=== PATIENT | female | born 1945 | race Caucasian/White ===

== ENCOUNTER 2016-08-25 13:01 | Outpatient (RCR) | payer MEDICARE | END 2016-09-13 09:56 | disposition home or self-care (01) | PROVIDERS: ATTEND Family Medicine | DX: M47.892 Other spondylosis, cervical region (principal) ==

== ENCOUNTER → 2017-03-05 | Outpatient (CLI) | payer MEDICARE ==
[2017-03-05 14:26] LABS: INR 1.7 (0.8-1.4)
== END ==
LOC: HH 14:17
PROVIDERS: ATTEND Orthopaedic Surgery
DX: Z79.01 Long term (current) use of anticoagulants (principal)
CPT/HCPCS: 85610

== ENCOUNTER → 2017-03-08 | Outpatient (CLI) | payer MEDICARE ==
[2017-03-08 10:44] LABS: INR 2.6 (0.8-1.4); PROTHROMBIN TIME PATIENT 27.3 SEC (12.2-14.7)
== END ==
LOC: HH 10:16
PROVIDERS: ATTEND Orthopaedic Surgery
DX: Z79.01 Long term (current) use of anticoagulants (principal)
CPT/HCPCS: 85610

== ENCOUNTER → 2017-03-15 | Outpatient (CLI) | payer MEDICARE ==
[2017-03-15 16:26] LABS: INR 2.6 (0.8-1.4); PROTHROMBIN TIME PATIENT 27.3 SEC (12.2-14.7)
== END ==
LOC: HH 10:00
PROVIDERS: ATTEND Orthopaedic Surgery
DX: Z79.01 Long term (current) use of anticoagulants (principal)
CPT/HCPCS: 85610

== ENCOUNTER 2017-04-06 14:30 | Outpatient (RCR) | payer MEDICARE | END 2017-04-07 | disposition home or self-care (01) | PROVIDERS: ATTEND Orthopaedic Surgery | DX: Z47.1 Aftercare following joint replacement surgery; Z96.652 Presence of left artificial knee joint ==

== ENCOUNTER 2017-05-09 10:00 | Outpatient (RCR) | payer MEDICARE | END 2017-05-09 10:56 | disposition home or self-care (01) | PROVIDERS: ATTEND Orthopaedic Surgery | DX: Z47.1 Aftercare following joint replacement surgery (principal); Z96.652 Presence of left artificial knee joint ==

== ENCOUNTER → 2019-07-07 | Outpatient (CLI) | payer MEDICARE ==
--- NOTE | 2019-07-07 11:40 | Diagnostic Imaging Report ---
INDICATION: Dysphagia. TECHNIQUE: Procedure was performed in conjunction with speech pathology. Videofluoroscopy was performed during swallowing of barium at multiple consistencies. 52 seconds of fluoroscopic time was utilized. FINDINGS: Patient ingested thin liquid through a spoon and straw. Patient also ingested puree, mechanical soft and cracker consistency. Oral phase is unremarkable. There is normal epiglottic tilt and laryngeal elevation. No laryngeal penetration or aspiration was observed. No significant vallecular or piriform sinus residue was seen. IMPRESSION: Unremarkable modified barium swallow. Dictated by: Dictated on workstation # [id number]
== END ==
LOC: RAD 10:22
PROVIDERS: ATTEND Internal Medicine Gastroenterology
DX: R13.19 Other dysphagia (principal)
CPT/HCPCS: 74230

== ENCOUNTER 2022-11-20 16:43 | Emergency (ER) | payer MEDICARE, MEDICAID ==
[~2022-11-20] VITALS: Ht 152 cm; Wt 63.5 kg
[2022-11-20] MEDS ORDERED: CYCLOBENZAPRINE 10 MG (FLEXERIL) TAB PO STA (17:06)
[2022-11-20] MEDS ORDERED: GABAPENTIN 600 MG (NEURONTIN) TAB PO ONE (17:15)
[2022-11-20] MEDS ORDERED: ACETAMINOPHEN 500 MG TAB (TYLENOL) PO ONE (17:15)
--- NOTE | 2022-11-20 17:24 | ED General ---
General Chief Complaint: General Problems/Pain Stated Complaint: RIGHT SIDE NECK/ARM/LEG/BACK/FOOT PAIN Nursing Triage Note: pt presents to ED with c/o pain on entire right side of body, from neck to right foot. pt has hx of arthritis and took tylenol arthritis but it didn't help the pain. Source of Information: Patient Exam Limitations: No Limitations History of Present Illness Date Seen by Provider: November 20, 2022 Time Seen by Provider: 16:47 Initial Comments 77-year-old female with past medical history of osteoarthritis coming in due to mostly right-sided neck pain and right shoulder pain. Started over a week ago, worse with movement, better with rest. She takes Tylenol extra strength which only helps a little bit. She also takes gabapentin at nighttime. She had neck pain years ago, was told she likely has early cervical stenosis at that point. Denies any weakness, numbness, headache, vision changes, chest pain, shortness of breath, or any other concerns. Denies any injury. Allergies and Home Medications Allergies Coded Allergies: Sulfa (Sulfonamide Antibiotics) (Unverified Allergy, Unknown, 07/17/13) Uncoded Allergies: PENICILLIN (Allergy, Unknown, 07/17/13) Patient Home Medication List Home Medication List Reviewed: Yes Review of Systems Review of Systems Constitutional: No fever EENTM: no symptoms reported Respiratory: no symptoms reported Cardiovascular: no symptoms reported Gastrointestinal: no symptoms reported Genitourinary: no symptoms reported Musculoskeletal: see HPI Past Veaqwub-Cczlby-Ymduqs Hx Patient Social History Tobacco Use?: No Substance use?: No Alcohol Use?: No Pt feels they are or have been: No Immunizations Up To Date Influenza Vaccine Up-to-Date: No; Not Current Physical Exam Vital Signs Vital Signs - First Documented 11/20/22 17:00 Pulse 66 Resp 20 B/P (MAP) 145/85 (105) Pulse Ox 98 Capillary Refill : Less Than 3 Seconds Height, Weight, BMI Height: '" Weight: 134lbs. 6.4oz. 60.888030az; 27.00 BMI Method: General Appearance: No Apparent Distress, WD/WN Eyes: Bilateral Eye Normal Inspection HEENT: PERRL/EOMI, Normal ENT Inspection, Pharynx Normal Neck: Full Range of Motion, Normal Inspection, Supple, Other (Pain with ranging of her neck, no weakness or numbness) Respiratory: Chest Non Tender, Lungs Clear, Normal Breath Sounds, No Accessory Muscle Use, No Respiratory Distress Cardiovascular: No Edema, Normal Peripheral Pulses Gastrointestinal: Normal Bowel Sounds, Non Tender, Soft Back: Normal Inspection, No CVA Tenderness, No Vertebral Tenderness Extremity: Normal Capillary Refill, Normal Inspection, Normal Range of Motion, Non Tender, No Calf Tenderness, No Pedal Edema, Other (Painful with range of motion of her shoulder which recreates her pain) Neurologic/Psychiatric: Alert, No Motor/Sensory Deficits, Normal Mood/Affect Skin: Normal Color, Warm/Dry Progress/Results/Core Measures Suspected Sepsis SIRS Temperature: Pulse: 66 Respiratory Rate: 20 Blood Pressure 145 /85 Mean: 105 Results/Orders My Orders Orders - [place] MD Shoulder, Right, 3 Views (11/20/22 17:06) Cervical Spine 3 Views Or Less (11/20/22 17:06) Acetaminophen Tablet (Tylenol Tablet) (11/20/22 17:15) Gabapentin Capsule/Tablet (Neurontin Cap (11/20/22 17:15) Cyclobenzaprine Tablet (Flexeril Tablet) (11/20/22 17:06) Medications Given in ED Current Medications Medications Dose Ordered Sig/Chela Route Start Time Stop Time Status Last Admin Dose Admin Acetaminophen 1,000 mg ONCE ONCE PO 11/20/22 17:15 11/20/22 17:16 DC 11/20/22 17:28 1,000 MG Gabapentin 600 mg ONCE ONCE PO 11/20/22 17:15 11/20/22 17:16 DC 11/20/22 17:27 600 MG Vital Signs/I&O 11/20/22 17:00 Pulse 66 Resp 20 B/P (MAP) 145/85 (105) Pulse Ox 98 Capillary Refill : Less Than 3 Seconds Blood Pressure Mean: 105 Progress Note : Progress Note 77-year-old female with above history coming in due to mostly neck and right shoulder pain. ABCs were intact vitals are stable on presentation. Sounds very musculoskeletal clinically and on exam. Unable to recreate the pain perfectly with range of motion which is more reassuring. X-ray of the cervical spine and shoulder ordered and interpreted by me showing no obvious fracture or dislocation but does have some mild degenerative changes. Was given her home dose gabapentin, Tylenol, as well as a Flexeril here. I believe she stable for discharge with outpatient orthopedic follow-up. She was sent home with strict return precautions. Prescription sent for muscle relaxer. Diagnostic Imaging Diagonstic Imaging: Xray (c spine and right shoulder) Comments [facility] [place] [place] NAME: DARÍO CARPENTER [facility] REC#: [id number] PT STATUS: REG ER : 1945 PHYSICIAN: [place] MD ADMIT DATE: 11/20/22/ER Draft Date of Exam:11/20/22 CERVICAL SPINE 3 VIEWS OR LESS INDICATION: Neck pain COMPARISON: 05/28/2016 TECHNIQUE: 3 radiographs of the cervical spine dated 11/20/2022. FINDINGS: Alignment of the cervical spine is well maintained. Besides mild endplate degenerative changes, vertebral body heights are well-maintained. Mild disc space height loss at C5/C6 and C6/C7 without severe disc space height loss. Mild multilevel anterior osteophyte formation. Mild multilevel facet joint degenerative changes. The lateral masses are well seated. The dens is predominantly obscured by overlying teeth and osseous structures. No acute fracture or dislocation. No destructive osseous process. Prevertebral soft tissues are unremarkable besides mild vascular calcifications. IMPRESSION: No acute osseous abnormality with mild degenerative changes present. Dictated on workstation # [id number] Dict: 11/20/22 1724 Trans: 11/20/22 172 [facility] [id number] Interpreted by: HALEY SANTILLAN MD Electronically signed by: [facility] [place] NAME: DARÍO CARPENTER [facility] REC#: [id number] PT STATUS: REG ER : 1945 PHYSICIAN: [place] MD ADMIT DATE: 11/20/22/ER Draft Date of Exam:11/20/22 SHOULDER, RIGHT, 3 VIEWS INDICATION: Shoulder pain. COMPARISON: None available. TECHNIQUE: 3 radiographs of the right shoulder dated 11/20/2022. FINDINGS: Minimal degenerative changes of the acromioclavicular joint. Mild degenerative changes of the glenohumeral joint with mild osteophyte formation. No acute fracture or dislocation. No destructive osseous process. Subacromial space is well-maintained. No suspicious radiopaque foreign body. IMPRESSION: No acute osseous abnormality with mild degenerative changes for age. Dictated on workstation # [id number] Dict: 11/20/22 1723 Trans: 11/20/22 172 [facility] [id number] Interpreted by: HALEY SANTILLAN MD Electronically signed by: Departure Impression Primary Impression: Cervical pain Additional Impression: Right shoulder pain Qualified Codes: M25.511 - Pain in right shoulder Disposition: HOME, SELF-CARE Condition: Stable Departure-Patient Inst. Decision time for Depature: 17:45 Referrals: STEVE SLATER DO (PCP/Family) Primary Care Physician Patient Instructions: Neck Stretches, Shoulder Pain ED Add. Discharge Instructions: We are not seeing anything broken on the xrays that would be concerning. This is likely related to arthritis and degenerative changes. Please follow-up with a bone specialist regarding this. A muscle relaxer was sent to your pharmacy to try to help with symptoms. Do not drive while taking this. Scripts Cyclobenzaprine HCl (Cyclobenzaprine HCl) 10 Mg Tablet 5 MG PO Q8H PRN for SPASMS for 6 Days, #9 TAB 0 Refills Prov: [place] MD 11/20/22 [place] MD November 20, 2022 17:24
--- NOTE | 2022-11-20 17:28 | Diagnostic Imaging Report ---
INDICATION: Neck pain COMPARISON: 05/28/2016 TECHNIQUE: 3 radiographs of the cervical spine dated 11/20/2022. FINDINGS: Alignment of the cervical spine is well maintained. Besides mild endplate degenerative changes, vertebral body heights are well-maintained. Mild disc space height loss at C5/C6 and C6/C7 without severe disc space height loss. Mild multilevel anterior osteophyte formation. Mild multilevel facet joint degenerative changes. The lateral masses are well seated. The dens is predominantly obscured by overlying teeth and osseous structures. No acute fracture or dislocation. No destructive osseous process. Prevertebral soft tissues are unremarkable besides mild vascular calcifications. IMPRESSION: No acute osseous abnormality with mild degenerative changes present. Dictated by: Dictated on workstation # [id number]
[2022-11-20] MEDS ORDERED: CYCL10TA25 PO (17:49)
[2022-11-20 18:14] VITALS: BP 117/92
== END 2022-11-20 18:15 | disposition home or self-care (01) ==
LOC: EDUNIT# 16:43 → ER 16:46
DX: M54.2 Cervicalgia (principal); M25.511 Pain in right shoulder; M19.90 Unspecified osteoarthritis, unspecified site; Z79.899 Other long term (current) drug therapy; Z79.1 Long term (current) use of non-steroidal anti-inflammatories (NSAID)
CPT/HCPCS: 72040; 73030